=== PATIENT | male | born 1935 | race Caucasian/White ===

== ENCOUNTER 2016-08-03 14:11 | Inpatient (IN) | payer OTHER, MEDICARE ==
[2016-08-03 14:13] VITALS: BP 142/70; PULSE 65; RESP 20; TEMP 98; O2SAT 94
[2016-08-03] MEDS ORDERED: LISI-515 PO (14:32)
[2016-08-03] MEDS ORDERED: LATA0.002 RIGHT EYE (14:32)
[2016-08-03] MEDS ORDERED: PROT40TA PO (14:32)
[2016-08-03] MEDS ORDERED: TIMO0.5S30 EACH EYE (14:32)
[2016-08-03] MEDS ORDERED: LOVA40TA PO (14:32)
[2016-08-03] MEDS ORDERED: XARE20TA PO (14:32)
[2016-08-03 14:59] VITALS: BP 143/74; PULSE 91; RESP 18; O2SAT 97
[2016-08-03] MEDS ORDERED: SODIUM CHLORIDE 0.9% FLUSH 10 ML FLUSH IV FLUSH PRN ×2 (15:00→21:15)
[2016-08-03] MEDS ORDERED: ONDANSETRON HCL 4 MG/2 ML VIAL IVP ONE (15:00)
[2016-08-03] MEDS ORDERED: DICYCLOMINE HCL 20 MG/2 ML VIAL IM ONE (15:00)
--- NOTE | 2016-08-03 15:00 | PD ---
HPI Chief Complaint: Abdominal Pain Time Seen by Provider: 14:48 Travel History International Travel<30 days: No Contact w/Intl Traveler<30days: No Traveled to known affect area: No History of Present Illness HPI 80-year-old male with history of bovine aortic heart valve replacement presents with his for evaluation of abdominal pain. Symptoms started 2 weeks ago. He describes it as a cramping sensation in the suprapubic region which has been constant for 2 weeks. Associated decreased appetite, nausea, constipation. He denies any fevers, chills, testicular or scrotal pain, flank pain, diarrhea, chest pain or shortness of breath. He has never had this type of pain before. He is currently on vacation from [place], returns next week. He has no other complaints. [facility] Past Medical History Cancer: Yes Hypertension: Yes Triglycerides - High: Yes Influenza Vaccination: Yes Past Surgical History Cardiac Surgery: Yes (Caratid procedure) Coronary Artery Bypass Graft: Yes (aortic valve replacement 2013) Prostatectomy: Yes Social History Alcohol Use: No Tobacco Use: No Substance Use: No Allergies-Medications (Allergen,Severity, Reaction): Coded Allergies: No Known Allergies (Unverified , 08/03/16) Reported Meds & Prescriptions Reported Meds & Active Scripts Active Reported Timolol Opth Drops 0.5 % Soln 1 Drop EACH EYE BID Lisinopril 20 Mg Tab 20 Mg PO DAILY Lovastatin 40 Mg Tab 40 Mg PO DAILY Xarelto (Rivaroxaban) 20 Mg Tab 20 Mg PO DAILY Latanoprost Opth Drops (Latanoprost) 0.005% Drops 1 Drop RIGHT EYE HS Refrigerate until opened. Protonix (Pantoprazole Sodium) 40 Mg Tab 40 Mg PO DAILY Review of Systems Except as stated in HPI: all other systems reviewed are Neg Physical Exam Narrative GENERAL: Well-developed well-nourished male in no acute distress SKIN: Warm and dry. HEAD: Atraumatic. Normocephalic. EYES: Pupils equal and round. No scleral icterus. No injection or drainage. ENT: No nasal bleeding or discharge. Mucous membranes pink and moist. NECK: Trachea midline. No JVD. CARDIOVASCULAR: Regular rate and rhythm. Systolic murmur appreciated. RESPIRATORY: No accessory muscle use. Clear to auscultation. Breath sounds equal bilaterally. GASTROINTESTINAL: Abdomen soft, tender to palpation in the lower quadrants without guarding. Nondistended. Normoactive bowel sounds in all 4 quadrants. MUSCULOSKELETAL: No obvious deformities. No edema NEUROLOGICAL: Awake and alert. No obvious cranial nerve deficits. Motor grossly within normal limits. Normal speech. PSYCHIATRIC: Appropriate mood and affect; insight and judgment normal. Data Data Last Documented VS Vital Signs Date Time Temp Pulse Resp B/P Pulse Ox O2 Delivery O2 Flow Rate FiO2 08/03/16 20:21 77 16 136/70 96 08/03/16 14:59 2 08/03/16 14:13 98.0 Room Air Orders Complete Blood Count With Diff (08/03/16 14:56) Comprehensive Metabolic Panel (08/03/16 14:56) Lipase (08/03/16 14:56) Prothrombin Time / Inr (Pt) (08/03/16 14:56) Act Partial Throm Time (Ptt) (08/03/16 14:56) Urinalysis - C+S If Indicated (08/03/16 14:56) Iv Access Insert/Monitor (08/03/16 14:56) Ecg Monitoring (08/03/16 14:56) Oximetry (08/03/16 14:56) Ondansetron Inj (Zofran Inj) (08/03/16 15:00) Sodium Chloride 0.9% Flush (Ns Flush) (08/03/16 15:00) Dicyclomine Inj (Bentyl Inj) (08/03/16 15:00) Sodium Chlor 0.9% 1000 Ml Inj (Ns 1000 M (08/03/16 19:15) Ct Abd/Pel W/O Iv Contrast (08/03/16 ) Ciprofloxacin 400 Mg Premix (Cipro 400 M (08/03/16 21:00) Metronidazole 500 Mg Inj (Flagyl 500 Mg (08/03/16 21:00) Lactic Acid Sepsis Protocol (08/03/16 20:47) Blood Culture (08/03/16 20:47) Consult Kary Nfs (08/03/16 ) Ct Abd/Pel W Iv Contrast(Rout) (08/04/16 08:00) Consult General Surgery (08/03/16 ) Admit Order (Ed Use Only) (08/03/16 21:12) Admit To Inpatient (08/03/16 ) Vital Signs (Adult) Q4H (08/03/16 21:08) Activity Oob With Assistance (08/03/16 21:08) Morgue Technician / Telemetry .CONTINUOUS (08/03/16 21:08) Diet Npo (08/04/16 Breakfast) Sodium Chloride 0.9% Flush (Ns Flush) (08/03/16 21:15) Sodium Chloride 0.9% Flush (Ns Flush) (08/04/16 09:00) Ondansetron Inj (Zofran Inj) (08/03/16 21:15) Basic Metabolic Panel (Bmp) (08/04/16 06:00) Complete Blood Count With Diff (08/04/16 06:00) Case Management Consult (08/03/16 21:08) Naloxone Inj (Narcan Inj) (08/03/16 21:15) Inpatient Certification (08/03/16 ) Labs Laboratory Tests Test 08/03/16 15:00 White Blood Count 15.6 TH/MM3 Red Blood Count 4.61 MIL/MM3 Hemoglobin 13.9 GM/DL Hematocrit 40.9 % Mean Corpuscular Volume 88.8 FL Mean Corpuscular Hemoglobin 30.1 PG Mean Corpuscular Hemoglobin 33.9 % Concent Red Cell Distribution Width 13.3 % Platelet Count 370 TH/MM3 Mean Platelet Volume 7.2 FL Neutrophils (%) (Auto) 77.8 % Lymphocytes (%) (Auto) 8.9 % Monocytes (%) (Auto) 12.6 % Eosinophils (%) (Auto) 0.2 % Basophils (%) (Auto) 0.5 % Neutrophils # (Auto) 12.1 TH/MM3 Lymphocytes # (Auto) 1.4 TH/MM3 Monocytes # (Auto) 2.0 TH/MM3 Eosinophils # (Auto) 0.0 TH/MM3 Basophils # (Auto) 0.1 TH/MM3 CBC Comment DIFF FINAL Differential Comment Prothrombin Time 14.0 SEC Prothromb Time International 1.3 RATIO Ratio Activated Partial 33.6 SEC Thromboplast Time Urine Color YELLOW Urine Turbidity HAZY Urine pH 5.5 Urine Specific [place] 1.036 Urine Protein 30 mg/dL Urine Glucose (UA) NEG mg/dL Urine Ketones 10 mg/dL Urine Occult Blood NEG Urine Nitrite NEG Urine Bilirubin NEG Urine Urobilinogen 2.0 MG/DL Urine Leukocyte Esterase NEG Urine RBC 1 /hpf Urine WBC 2 /hpf Urine Squamous Epithelial <1 /hpf Cells Urine Mucus MANY /lpf Microscopic Urinalysis Comment CULT NOT INDICATED Sodium Level 133 MEQ/L Potassium Level 4.3 MEQ/L Chloride Level 96 MEQ/L Carbon Dioxide Level 26.5 MEQ/L Anion Gap 11 MEQ/L Blood Urea Nitrogen 17 MG/DL Creatinine 1.05 MG/DL Estimat Glomerular Filtration 68 ML/MIN Rate Random Glucose 111 MG/DL Calcium Level 9.0 MG/DL Total Bilirubin 0.9 MG/DL Aspartate Amino Transf 46 U/L (AST/SGOT) Alanine Aminotransferase 48 U/L (ALT/SGPT) Alkaline Phosphatase 98 U/L Total Protein 7.3 GM/DL Albumin 2.8 GM/DL Lipase 165 U/L MDM Medical Decision Making Medical Screen Exam Complete: Yes Emergency Medical Condition: Yes Medical Record Reviewed: Yes Interpretation(s) CT abdomen and pelvis CONCLUSION: Intravenous contrast dose extravasated in the arm soft tissues during injection. This is essentially a noncontrast study and slightly limited but features are most typical of severe diverticulitis with associated large, multiloculated abscess formation in the pelvic cavity. There are inflammatory changes of adjacent small bowel loops, presumably secondary. I would recommend giving additional enteric contrast, one bottle now and one bottle at approximately 6 AM on 08/04 and then rescanning the pelvis tomorrow morning at approximately 8 AM. Differential Diagnosis Constipation, colitis, diverticulitis, appendicitis, cystitis Narrative Course 80-year-old male with 2 weeks of abdominal cramping, nausea, constipation. Plans for basic lab work, urinalysis, CT abdomen and pelvis. He'll be given Bentyl, Zofran. Upon reexamination the patient does feel better. There was some delay in the CT being read because of traumas and also because his IV contrast extravasated. Examination of the right arm just reveals a small less than 1 cm area of ecchymosis, minimal pain. His white count is 15 but otherwise his lab work is reassuring. 2049: CT imaging has been read. Most consistent with severe diverticulitis with multiloculated abscess formation. Therefore the patient will be admitted, IV Cipro and Flagyl been ordered. The general surgeon convenience recycle center tech will also be consulted. Interventional radiology will be consult. The radiologist has recommended that a CT of the abdomen and pelvis with oral contrast given now, additional oral contrast at 6 AM, repeat CAT scan at 8 AM in the morning with IV contrast. This order has been placed into the computer and the nurses been notified of these instructions. Diagnosis Primary Impression: Diverticulitis Qualified Code: K57.80 - Diverticulitis of intestine with abscess, unspecified bleeding status, unspecified part of intestinal tract Admitting Information Admitting Physician Requests: Roderick Hernandez August 03, 2016 15:00
[2016-08-03 15:15] LABS: AUTOMATED NEUTROPHIL # 12.1 TH/MM3 (1.8-7.7); BASOPHIL # 0.1 TH/MM3 (0-0.2); BASOPHIL % 0.5 % (0.0-2.0); EOSINOPHIL % 0.2 % (0.0-4.0); HEMATOCRIT 40.9 % (39.0-51.0); HEMO FLAGS DIFF FINAL; LYMPH % 8.9 % (9.0-44.0); LYMPHOCYTE # 1.4 TH/MM3 (1.0-4.8); MEAN CELL VOLUME 88.8 FL (80.0-100.0); MEAN CORPUSCULAR HEMOGLOBIN 30.1 PG (27.0-34.0); MEAN CORPUSCULAR HGB CONC 33.9 % (32.0-36.0); MONO % 12.6 % (0.0-8.0); NEUT % 77.8 % (16.0-70.0); PLATELET COUNT 370 TH/MM3 (150-450); RED BLOOD COUNT 4.61 MIL/MM3 (4.50-5.90); RED CELL DISTRIBUTION WIDTH 13.3 % (11.6-17.2); WHITE BLOOD COUNT 15.6 TH/MM3 (4.0-11.0)
[2016-08-03 15:27] LABS: APTT (PATIENT) 33.6 SEC (24.3-30.1); INTERNATIONAL NORMALIZED RATIO 1.3 RATIO
[2016-08-03 15:33] LABS: ALT (GPT) 48 U/L (12-78); ANION GAP 11 MEQ/L (5-15); AST (GOT) 46 U/L (15-37); BICARBONATE 26.5 MEQ/L (21.0-32.0); BLOOD UREA NITROGEN 17 MG/DL (7-18); CHLORIDE 96 MEQ/L (98-107); GLOMERULAR FILTRATION RATE 68 ML/MIN (>89); POTASSIUM 4.3 MEQ/L (3.5-5.1); SODIUM (NA) 133 MEQ/L (136-145)
[2016-08-03 15:35] LABS: ALKALINE PHOSPHATASE 98 U/L (45-117); TOTAL BILIRUBIN ADULT 0.9 MG/DL (0.2-1.0)
[2016-08-03 15:52] LABS: BLOOD, URINE NEG (NEG); COMMENT (UR) CULT NOT INDICATED; CULTURE IF INDICATED CULT NOT INDICATED; GLUCOSE,URINE NEG (NEG); KETONE, URINE 10 mg/dL (NEG); MUCUS URINE MANY /lpf (OCC); NITRITE,URINE NEG (NEG); PH, URINE 5.5 (5.0-8.5); SQUAMOUS EPITHELIAL CELL URINE <1 /hpf (0-5); URINE COLOR YELLOW (YELLW/STRAW)
[2016-08-03] MEDS ORDERED: SODIUM CHLOR 0.9% 1000 ML INJ 1,000 ML IV SCH (19:15)
[2016-08-03 20:21] VITALS: BP 136/70; PULSE 77; RESP 16; O2SAT 96
--- NOTE | 2016-08-03 20:45 | RADRPT ---
EXAM DATE/TIME: 08/03/2016 00:00 [facility] COMPARISON: No previous studies available for comparison. INDICATIONS : Abdominal pain. ORAL CONTRAST: No oral contrast ingested. RADIATION DOSE: 9.08 CTDIvol (mGy) MEDICAL HISTORY : Cardiovascular disease. Hypertension. SURGICAL HISTORY : Prostatectomy. ENCOUNTER: Initial ACUITY: 1 day PAIN SCALE: 5/10 LOCATION: abdomen TECHNIQUE: Volumetric scanning of the abdomen and pelvis was performed. Using automated exposure control and ad justment of the mA and/or kV according to patient size, radiation dose was kept as low as reasonably achievable to obtain optimal diagnostic quality images. FINDINGS: LOWER LUNGS: The visualized lower lungs are clear. LIVER: Homogeneous density without lesion. There is no dilation of the biliary tree. No calcified gallston es. SPLEEN: Normal size without lesion. PANCREAS: Within normal limits. KIDNEYS: Normal in size and shape. There is no mass, stone, or hydronephrosis. ADRENAL GLANDS: Within normal limits. VASCULAR: There is atherosclerosis of the abdominal aorta. No aneurysm. BOWEL/MESENTERY: High-grade inflammatory changes involve the sigmoid colon. Diverticula are present. Medial to the sig moid colon is a masslike phlegmon measuring 5.7 x 6.8 x 6.0 cm. I believe this is a multiloculated ab scess. There is some wall thickening of adjacent small bowel loops but was mildly secondarily. I don' t see obstruction. No free air. ABDOMINAL WALL: Within normal limits. RETROPERITONEUM: There is no lymphadenopathy. BLADDER: No wall thickening or mass. REPRODUCTIVE: Within normal limits. INGUINAL: There is no lymphadenopathy or hernia. MUSCULOSKELETAL: Within normal limits for patient age. CONCLUSION: Intravenous contrast dose extravasated in the arm soft tissues during injection. This is essentially a noncontrast study and slightly limited but features are most typical of severe diverticulitis with associated large, multiloculated abscess formation in the pelvic cavity. There are inflammatory williamson es of adjacent small bowel loops, presumably secondary. I would recommend giving additional enteric c ontrast, one bottle now and one bottle at approximately 6 AM on 08/04 and then rescanning the pelvis t omorrow morning at approximately 8 AM. Brock Khan MD on August 03, 2016 at 20:39 Board Certified Radiologist. This report was verified electronically.
[2016-08-03] MEDS ORDERED: metroNIDAZOLE 500 MG INJ 100 ML IV ONE (21:00)
[2016-08-03] MEDS ORDERED: CIPROFLOXACIN 400 MG PREMIX 200 ML IV ONE (21:00)
[2016-08-03] MEDS ORDERED: ONDANSETRON HCL 4 MG/2 ML VIAL IVP PRN (21:15)
[2016-08-03] MEDS ORDERED: NALOXONE HCL 0.4 MG/ML AMP IV PRN (21:15)
[2016-08-03] MEDS: DEXT 5%-NACL 0.9% 1000 ML INJ 1,000 ML IV SCH (21:30)
[2016-08-03] MEDS ORDERED: DIATRIZOATE MEGLUM/DIATRIZOATE SOD 9 ML CUP ONE (22:05)
[2016-08-03 22:14] VITALS: BP 129/69; TEMP 99
--- NOTE | 2016-08-03 22:34 | HHI.HP ---
[facility]Staff Admission Diagnosis diverticulitis with abscess formation Diagnoses: Chief Complaint: Abdominal pain Travel History International Travel<30 Days: No Contact w/Intl Traveler <30 Da: No Traveled to Known Affected Are: No History of Present Illness Written by Aniyah Stein, acting as scribe for Dr. Singleton on 08/03/16 at 23: 14. 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 Patient is currently here on vacation from [place]. Patient reports for the last couple of weeks he has been having cramping type abdominal pain bilateral lower abdominal quadrants /suprapubic pain. Patient reports initially the pain was mild but is getting progressively worse. Patient had associated constipation. Patient has had taken an enema at home with no results. Reports last BM 10 days ago. Patient continues to pass flatus. Patient endorses black stool and had been taking Pepto Bismol OTC. Patient denies nausea, vomiting, chest pain, shortness of breath, fevers or chills. Patient has had recent plain traveled from [place] denies lower extremity edema or calf pain. 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 Protonix (Pantoprazole Sodium) 40 Mg Tab 40 Mg PO DAILY Allergies: Coded Allergies: No Known Allergies (Unverified , 08/03/16) Active Ordered Medications Current Medications Medications (Trade) Dose Ordered Sig/Sherman Route Start Time Stop Time Status Last Admin (NS Flush) 2 ml UNSCH PRN IV FLUSH 08/03/16 21:15 (NS Flush) 2 ml BID IV FLUSH 08/04/16 09:00 (Zofran Inj) 4 mg Q6H PRN IVP 08/03/16 21:15 Naloxone HCl 0.4 mg 0.4 mg UNSCH PRN IV 08/03/16 21:15 Ciprofloxacin/ Dextrose 200 ml @ 200 mls/hr Q12H IV 08/04/16 09:00 Metronidazole 100 ml @ 100 mls/hr Q6H IV 08/04/16 03:00 (D5W-NS 1000 ml Inj) 1,000 ml @ 84 mls/hr [id number] IV 08/03/16 21:30 08/03/16 21:30 Family History Brother at 55 secondary to HI Sister at 65 secondary to brain aneurysm also had HTN Social History Here on vacation from [place] ETOH use glass of wine daily quit smoking cigarettes 50 years ago Physical Exam Vital Signs Vital Signs Date Time Temp Pulse Resp B/P Pulse Ox O2 Delivery O2 Flow Rate FiO2 08/03/16 22:14 99.0 79 16 129/69 96 08/03/16 20:21 77 16 136/70 96 08/03/16 14:59 91 18 143/74 97 2 08/03/16 14:13 98.0 65 20 142/70 94 Room Air Physical Exam GENERAL: This is a well-nourished, well-developed patient, in no apparent distress. SKIN: No rashes, ecchymoses or lesions. Cool and dry. Right upper extremity edema secondary to Intravenous contrast dose extravasated HEAD: Atraumatic. Normocephalic. No temporal or scalp tenderness. EYES: No scleral icterus. No injection or drainage. CARDIOVASCULAR: Regular rate and rhythm without murmurs, gallops, or rubs. RESPIRATORY: Clear to auscultation. Breath sounds equal bilaterally. No wheezes , rales, or rhonchi. GASTROINTESTINAL: Abdomen soft, tender to light palpation bilateral lower abdominal quadrants and suprapubic area, nondistended. Positive bowel sounds all 4 quadrants MUSCULOSKELETAL: Extremities without clubbing, cyanosis, or edema. No joint tenderness, effusion, or edema noted. No calf tenderness. Negative Homans sign bilaterally. NEUROLOGICAL: Awake and alert. No focal deficits appreciated. Motor and sensory grossly within normal limits. Five out of 5 muscle strength in all muscle groups. Normal speech. Laboratory Laboratory Tests Test 08/03/16 08/03/16 15:00 21:15 White Blood Count 15.6 Red Blood Count 4.61 Hemoglobin 13.9 Hematocrit 40.9 Mean Corpuscular Volume 88.8 Mean Corpuscular Hemoglobin 30.1 Mean Corpuscular Hemoglobin 33.9 Concent Red Cell Distribution Width 13.3 Platelet Count 370 Mean Platelet Volume 7.2 Neutrophils (%) (Auto) 77.8 Lymphocytes (%) (Auto) 8.9 Monocytes (%) (Auto) 12.6 Eosinophils (%) (Auto) 0.2 Basophils (%) (Auto) 0.5 Neutrophils # (Auto) 12.1 Lymphocytes # (Auto) 1.4 Monocytes # (Auto) 2.0 Eosinophils # (Auto) 0.0 Basophils # (Auto) 0.1 CBC Comment DIFF FINAL Differential Comment Prothrombin Time 14.0 Prothromb Time International 1.3 Ratio Activated Partial 33.6 Thromboplast Time Urine Color YELLOW Urine Turbidity HAZY Urine pH 5.5 Urine Specific [place] 1.036 Urine Protein 30 Urine Glucose (UA) NEG Urine Ketones 10 Urine Occult Blood NEG Urine Nitrite NEG Urine Bilirubin NEG Urine Urobilinogen 2.0 Urine Leukocyte Esterase NEG Urine RBC 1 Urine WBC 2 Urine Squamous Epithelial <1 Cells Urine Mucus MANY Microscopic Urinalysis Comment CULT NOT INDICATED Sodium Level 133 Potassium Level 4.3 Chloride Level 96 Carbon Dioxide Level 26.5 Anion Gap 11 Blood Urea Nitrogen 17 Creatinine 1.05 Estimat Glomerular Filtration 68 Rate Random Glucose 111 Calcium Level 9.0 Total Bilirubin 0.9 Aspartate Amino Transf 46 (AST/SGOT) Alanine Aminotransferase 48 (ALT/SGPT) Alkaline Phosphatase 98 Total Protein 7.3 Albumin 2.8 Lipase 165 Lactic Acid Level 0.9 Date/Time Procedure Status Source Growth 08/03/16 21:30 Aerobic Blood Culture Received Blood Peripheral Pending 08/03/16 21:30 Anaerobic Blood Culture Received Blood Peripheral Pending Result Diagram: 08/03/16 1500 08/03/16 1500 Imaging Last Impressions Abdomen/Pelvis CT 08/03/16 0000 Signed Impressions: Service Date/Time: July 00:00 - CONCLUSION: Intravenous contrast dose extravasated in the arm soft tissues during injection. This is essentially a noncontrast study and slightly limited but features are most typical of severe diverticulitis with associated large, multiloculated abscess formation in the pelvic cavity. There are inflammatory changes of adjacent small bowel loops, presumably secondary. I would recommend giving additional enteric contrast, one bottle now and one bottle at approximately 6 AM on 08/04 and then rescanning the pelvis tomorrow morning at approximately 8 AM. 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 Patient is currently here on vacation from [place]. Patient reports for the last couple of weeks he has been having cramping type abdominal pain bilateral lower abdominal quadrants /suprapubic pain. Patient reports initially the pain was mild but is getting progressively worse. Abdominal pain Severe diverticulitis with multiloculated abscess Patient nothing by mouth CT scan reviewed and reveals: severe diverticulitis: severe diverticulitis with associated large, multiloculated abscess formation in the pelvic cavity. There are inflammatory changes of adjacent small bowel loops, presumably secondary. Intravenous contrast dose extravasated into soft tissue of arm during scan will repeat scan in AM IV hydration IV ciprofloxacin and Flagyl Consult general surgery Right upper extremity edema secondary to Intravenous contrast dose extravasated family history of brain aneurysm discussed risks with patient and recommended patient follow up with PCP for evaluation other chronic stable medical conditions include: HTN, CAD, aortic stenosis, TIA/ CVA continue home medications as indicated Discussed with ER provider, nursing and patient This note was transcribed by [email or web address] [Stefanie Stein]. I, Dr. Garth Singleton personally performed the history, physical exam, and medical decision making; and confirmed the accuracy of the information in the transcribed note. Authenticated by Dr. Garth Singleton on 08/03/16 at 23:14. Physician Certification 2 Midnight Certification Type: Admission for Inpatient Services Order for Inpatient Services The services are ordered in accordance with Medicare regulations or non- Medicare payer requirements, as applicable. In the case of services not specified as inpatient-only, they are appropriately provided as inpatient services in accordance with the 2-midnight benchmark. Estimated LOS (days): 3 days is the estimated time the patient will need to remain in the hospital, assuming treatment plan goals are met and no additional complications. Post-Hospital Plan: Home Problem Qualifiers (1) Diverticulitis: Qualified Code: K57.80 - Diverticulitis of intestine with abscess, unspecified bleeding status, unspecified part of intestinal tract Aniyah Stein August 03, 2016 22:34 Garth Singleton MD August 04, 2016 08:11
[2016-08-03 23:00] VITALS: PULSE 60
[2016-08-04] VITALS (7 sets, daily range): BP systolic 99–129; BP diastolic 52–62; PULSE 50–66; RESP 16–20; TEMP 97.1–98; O2SAT 93–97
[2016-08-04] MEDS ORDERED: DIATRIZOATE MEGLUM/DIATRIZOATE SOD 9 ML CUP PO ONE (00:57)
[2016-08-04] MEDS: metroNIDAZOLE 500 MG INJ 100 ML IV SCH ×4 (03:31→21:18)
[2016-08-04] MEDS ORDERED: IOHEXOL 350 MG/ML 10 ML VIAL (for RAD DIAG) IV ONE (09:20)
[2016-08-04] MEDS: SODIUM CHLORIDE 0.9% FLUSH 10 ML FLUSH IV FLUSH SCH ×2 (09:47→21:00)
[2016-08-04 09:56] LABS: AUTOMATED NEUTROPHIL # 7.6 TH/MM3 (1.8-7.7); BASOPHIL # 0.1 TH/MM3 (0-0.2); BASOPHIL % 0.5 % (0.0-2.0); EOSINOPHIL # 0.1 TH/MM3 (0-0.4); EOSINOPHIL % 0.9 % (0.0-4.0); HEMATOCRIT 36.7 % (39.0-51.0); HEMO FLAGS DIFF FINAL; LYMPH % 13.2 % (9.0-44.0); LYMPHOCYTE # 1.4 TH/MM3 (1.0-4.8); MEAN CELL VOLUME 89.1 FL (80.0-100.0); MEAN CORPUSCULAR HEMOGLOBIN 29.8 PG (27.0-34.0); MEAN CORPUSCULAR HGB CONC 33.4 % (32.0-36.0); MONO % 12.9 % (0.0-8.0); NEUT % 72.5 % (16.0-70.0); PLATELET COUNT 280 TH/MM3 (150-450); RED BLOOD COUNT 4.12 MIL/MM3 (4.50-5.90); RED CELL DISTRIBUTION WIDTH 12.9 % (11.6-17.2); WHITE BLOOD COUNT 10.4 TH/MM3 (4.0-11.0)
[2016-08-04 10:10] LABS: BICARBONATE 25.6 MEQ/L (21.0-32.0); POTASSIUM 3.9 MEQ/L (3.5-5.1)
--- NOTE | 2016-08-04 10:29 | RADRPT ---
EXAM DATE/TIME: 08/04/2016 09:04 [facility] COMPARISON: No previous studies available for comparison. INDICATIONS : Abdominal pain. IV CONTRAST: 85 cc Omnipaque 350 (iohexol) IV ORAL CONTRAST: Prescribed oral contrast ingested. RADIATION DOSE: 9.96 CTDIvol (mGy) MEDICAL HISTORY : Cardiovascular disease. Hypertension. Diverticulitis. SURGICAL HISTORY : Prostatectomy. ENCOUNTER: Subsequent ACUITY: 1 day PAIN SCALE: 1/10 LOCATION: TECHNIQUE: Volumetric scanning of the abdomen and pelvis was performed. Using automated exposure control and ad justment of the mA and/or kV according to patient size, radiation dose was kept as low as reasonably achievable to obtain optimal diagnostic quality images. FINDINGS: Within the sigmoid colon there is an approximately 6 cm segment of marked mural thickening associated with sigmoid diverticulosis characteristic sigmoid diverticulitis.. The inflammatory process appears to engulf a loop of distal small bowel with mural thickening of the adjacent ileum. There is some sc attered nonloculated fluid around the sigmoid colon and thickened small bowel but without loculated a bscess formation at this time. There is some luminal narrowing of distal small bowel and sigmoid colo n without evidence for obstruction. There is no free air. There is a small amount of free fluid in th e pelvis. Lung bases demonstrate subsegmental atelectasis or scarring. Moderate hiatal hernia. No acute finding s in the liver, spleen, adrenals, kidneys or pancreas. No calcified gallstones. No acute bony abnorma lities. CONCLUSION: 1. Acute sigmoid diverticulitis with fairly large phlegmonous mass in the mid pelvis involving an adj acent loop of small bowel associated with small bowel thickening. There is some nonloculated fluid in the central pelvis as well as a small amount of free fluid. No discrete or drainable abscess is seen . No free air. 2. Moderate-sized hiatal hernia. Previous aortic valve replacement. Jose Angel Wan MD on August 04, 2016 at 10:18 Board Certified Radiologist. This report was verified electronically.
[2016-08-04] MEDS: CIPROFLOXACIN 400 MG PREMIX 200 ML IV SCH ×2 (11:50→22:27)
--- NOTE | 2016-08-04 12:59 | HHI.PR ---
Subjective Remarks Denies abdominal pain denies nausea and vomiting denies fevers and chills Objective Vitals Vital Signs Date Time Temp Pulse Resp B/P Pulse Ox O2 Delivery O2 Flow Rate FiO2 08/04/16 08:00 97.1 56 20 111/62 96 08/04/16 04:00 97.7 54 16 99/53 95 08/04/16 00:00 97.6 66 16 99/52 94 08/03/16 23:00 60 08/03/16 22:14 99.0 79 16 129/69 96 08/03/16 20:21 77 16 136/70 96 08/03/16 14:59 91 18 143/74 97 2 08/03/16 14:13 98.0 65 20 142/70 94 Room Air I/O 08/03/16 08/03/16 08/03/16 08/04/16 08/04/16 08/04/16 07:00 15:00 23:00 07:00 15:00 23:00 Intake Total 600 ml 530 ml Balance 600 ml 530 ml Intake Oral 600 ml IV Total 530 ml # Voids 2 Result Diagram: 08/04/1636 08/04/16 0936 Imaging Last Impressions Abdomen/Pelvis CT 08/04/16 0800 Signed Impressions: Service Date/Time: Thursday, August 04, 2016 09:04 - CONCLUSION: 1. Acute sigmoid diverticulitis with fairly large phlegmonous mass in the mid pelvis involving an adjacent loop of small bowel associated with small bowel thickening. There is some nonloculated fluid in the central pelvis as well as a small amount of free fluid. No discrete or drainable abscess is seen. No free air. 2. Moderate- sized hiatal hernia. Previous aortic valve replacement. Jose Angel Wan MD Objective Remarks GENERAL: NAD SKIN: Warm and dry. HEAD: Atraumatic. Normocephalic. EYES: Pupils equal and round. No scleral icterus. No injection or drainage. ENT: No nasal bleeding or discharge. Mucous membranes pink and moist. NECK: Trachea midline. No JVD. CARDIOVASCULAR: Regular rate and rhythm. RESPIRATORY: No accessory muscle use. Clear to auscultation. Breath sounds equal bilaterally. GASTROINTESTINAL: Abdomen soft, non-tender, nondistended. Hepatic and splenic margins not palpable. MUSCULOSKELETAL: Extremities without clubbing, cyanosis, or edema. No obvious deformities. NEUROLOGICAL: Awake and alert. No obvious cranial nerve deficits. Motor grossly within normal limits. Five out of 5 muscle strength in the arms and legs. Normal speech. PSYCHIATRIC: Appropriate mood and affect; insight and judgment normal. Procedures none Medications and IVs Current Medications Medications (Trade) Dose Ordered Sig/Sherman Route Start Time Stop Time Status Last Admin (NS Flush) 2 ml UNSCH PRN IV FLUSH 08/03/16 21:15 (NS Flush) 2 ml BID IV FLUSH 08/04/16 09:00 08/04/16 09:47 (Zofran Inj) 4 mg Q6H PRN IVP 08/03/16 21:15 Naloxone HCl 0.4 mg 0.4 mg UNSCH PRN IV 08/03/16 21:15 Ciprofloxacin/ Dextrose 200 ml @ 200 mls/hr Q12H IV 08/04/16 09:00 08/04/16 11:50 Metronidazole 100 ml @ 100 mls/hr Q6H IV 08/04/16 03:00 08/04/16 15:14 (D5W-NS 1000 ml Inj) 1,000 ml @ 84 mls/hr [id number] IV 08/03/16 21:30 08/03/16 21:30 Urinary Catheter: No Vascular Central Line Catheter: No A/P Problem List: (1) Sepsis ICD Code: A41.9 Status: Acute (2) Acute diverticulitis ICD Code: K57.92 Status: Acute Assessment and Plan Patient presented initially with abdominal pain and found to have diverticulitis with what was thought to be multiloculated abscess. Patient admitted to the medical floor, placed on IV fluids, nothing by mouth, placed on pain control with IV pain medications Surgery consulted for possible diverticulitis with multiloculated abscess, however CT scan was without contrast due to failed CT scan with IV contrast due to extravasation of IV contrast on first CT. Repeat CT does not show abscess. Follow-up surgery recommendations. Given P nothing by mouth for now Continue IV fluids, continue IV ciprofloxacin and IV Flagyl Abdominal pain has resolved. Problem Qualifiers (1) Sepsis: Qualified Code: A41.9 - Sepsis, due to unspecified organism Diomedes Alcantar MD August 04, 2016 12:59
--- NOTE | 2016-08-04 14:35 | HHI.PR ---
Subjective Subjective Notes Resting in bed Feeling better Inquiring about when he will be able to go home Objective Vitals/I&O Vital Signs Date Time Temp Pulse Resp B/P Pulse Ox O2 Delivery O2 Flow Rate FiO2 08/04/16 08:00 97.1 56 20 111/62 96 08/03/16 14:59 2 08/03/16 14:13 Room Air Labs Laboratory Tests Test 08/03/16 08/03/16 08/04/16 15:00 21:15 09:36 White Blood Count 15.6 10.4 Red Blood Count 4.61 4.12 Hemoglobin 13.9 12.3 Hematocrit 40.9 36.7 Mean Corpuscular Volume 88.8 89.1 Mean Corpuscular Hemoglobin 30.1 29.8 Mean Corpuscular Hemoglobin 33.9 33.4 Concent Red Cell Distribution Width 13.3 12.9 Platelet Count 370 280 Mean Platelet Volume 7.2 6.9 Neutrophils (%) (Auto) 77.8 72.5 Lymphocytes (%) (Auto) 8.9 13.2 Monocytes (%) (Auto) 12.6 12.9 Eosinophils (%) (Auto) 0.2 0.9 Basophils (%) (Auto) 0.5 0.5 Neutrophils # (Auto) 12.1 7.6 Lymphocytes # (Auto) 1.4 1.4 Monocytes # (Auto) 2.0 1.3 Eosinophils # (Auto) 0.0 0.1 Basophils # (Auto) 0.1 0.1 CBC Comment DIFF FINAL DIFF FINAL Differential Comment Prothrombin Time 14.0 Prothromb Time International 1.3 Ratio Activated Partial 33.6 Thromboplast Time Urine Color YELLOW Urine Turbidity HAZY Urine pH 5.5 Urine Specific [place] 1.036 Urine Protein 30 Urine Glucose (UA) NEG Urine Ketones 10 Urine Occult Blood NEG Urine Nitrite NEG Urine Bilirubin NEG Urine Urobilinogen 2.0 Urine Leukocyte Esterase NEG Urine RBC 1 Urine WBC 2 Urine Squamous Epithelial <1 Cells Urine Mucus MANY Microscopic Urinalysis Comment CULT NOT INDICATED Sodium Level 133 137 Potassium Level 4.3 3.9 Chloride Level 96 101 Carbon Dioxide Level 26.5 25.6 Anion Gap 11 10 Blood Urea Nitrogen 17 13 Creatinine 1.05 0.78 Estimat Glomerular Filtration 68 96 Rate Random Glucose 111 101 Calcium Level 9.0 8.1 Total Bilirubin 0.9 Aspartate Amino Transf 46 (AST/SGOT) Alanine Aminotransferase 48 (ALT/SGPT) Alkaline Phosphatase 98 Total Protein 7.3 Albumin 2.8 Lipase 165 Lactic Acid Level 0.9 Date/Time Procedure Status Source Growth 08/03/16 21:30 Aerobic Blood Culture - Preliminary Resulted Blood Peripheral NO GROWTH IN 1 DAY 08/03/16 21:30 Anaerobic Blood Culture - Preliminary Resulted Blood Peripheral NO GROWTH IN 1 DAY Cardiovascular: Regular Lungs: Clear Abdomen: Non-distended, Other (minimal discomfot with palpation ) Extremities: No edema A/P Assessment and Plan 80 year old male with acute diverticulitis -Continue antibiotics ---Cipro/Flagyl -Repeat CT does not show drainage fluid collection -Continue to monitor WBC ---today 10.4 -OOB and mobilize -NPO; Okay for ice chips -Continue non operative treatment Attending Statement Patient seen at bedside no abscess on re CT continue non operative mgnt and abx Attestation The exam, history, and the medical decision-making described in the above note were completed with the assistance of the mid-level provider. I reviewed and agree with the findings presented. I attest that I had a [id number] encounter with the patient on the same day, and personally performed and documented my assessment and findings in the medical record. Shirley Shaw August 04, 2016 14:35 Thom Mata MD Aug 13, 2016 21:34
[2016-08-04] MEDS: DEXT 5%-NACL 0.9% 1000 ML INJ 1,000 ML IV SCH (21:20)
[2016-08-05] VITALS: BP 97/52; PULSE 55; RESP 18; TEMP 98.7; O2SAT 94
[2016-08-05] MEDS: metroNIDAZOLE 500 MG INJ 100 ML IV SCH ×3 (02:13→15:45)
[2016-08-05 04:00] VITALS: BP 97/55; PULSE 56; RESP 19; TEMP 99.8; O2SAT 94
[2016-08-05] MEDS: DEXT 5%-NACL 0.9% 1000 ML INJ 1,000 ML IV SCH (06:53)
[2016-08-05 08:00] VITALS: BP 106/56; PULSE 55; RESP 20; TEMP 98.1; O2SAT 91
[2016-08-05] MEDS: SODIUM CHLORIDE 0.9% FLUSH 10 ML FLUSH IV FLUSH SCH (09:00)
[2016-08-05] MEDS: CIPROFLOXACIN 400 MG PREMIX 200 ML IV SCH (10:26)
[2016-08-05 10:30] LABS: BASOPHIL # 0.1 TH/MM3 (0-0.2); BASOPHIL % 0.7 % (0.0-2.0); EOSINOPHIL # 0.2 TH/MM3 (0-0.4); EOSINOPHIL % 2.2 % (0.0-4.0); HEMO FLAGS DIFF FINAL; LYMPH % 14.7 % (9.0-44.0); LYMPHOCYTE # 1.1 TH/MM3 (1.0-4.8); MEAN CORPUSCULAR HEMOGLOBIN 31.3 PG (27.0-34.0); MEAN CORPUSCULAR HGB CONC 35.2 % (32.0-36.0); MONO % 13.7 % (0.0-8.0); NEUT % 68.7 % (16.0-70.0); PLATELET COUNT 303 TH/MM3 (150-450); RED BLOOD COUNT 3.93 MIL/MM3 (4.50-5.90); RED CELL DISTRIBUTION WIDTH 13.1 % (11.6-17.2); WHITE BLOOD COUNT 7.3 TH/MM3 (4.0-11.0)
--- NOTE | 2016-08-05 10:44 | HHI.PR ---
Subjective Subjective Notes feels fine, wants to eat and go home Objective Vitals/I&O Vital Signs Date Time Temp Pulse Resp B/P Pulse Ox O2 Delivery O2 Flow Rate FiO2 08/05/16 08:00 98.1 55 20 106/56 91 08/03/16 14:59 2 08/03/16 14:13 Room Air Labs Laboratory Tests Test 08/05/16 09:53 White Blood Count 7.3 Red Blood Count 3.93 Hemoglobin 12.3 Hematocrit 35.0 Mean Corpuscular Volume 89.0 Mean Corpuscular Hemoglobin 31.3 Mean Corpuscular Hemoglobin 35.2 Concent Red Cell Distribution Width 13.1 Platelet Count 303 Mean Platelet Volume 7.3 Neutrophils (%) (Auto) 68.7 Lymphocytes (%) (Auto) 14.7 Monocytes (%) (Auto) 13.7 Eosinophils (%) (Auto) 2.2 Basophils (%) (Auto) 0.7 Neutrophils # (Auto) 5.0 Lymphocytes # (Auto) 1.1 Monocytes # (Auto) 1.0 Eosinophils # (Auto) 0.2 Basophils # (Auto) 0.1 CBC Comment DIFF FINAL Differential Comment Date/Time Procedure Status Source Growth 08/03/16 21:30 Aerobic Blood Culture - Preliminary Resulted Blood Peripheral NO GROWTH IN 1 DAY 08/03/16 21:30 Anaerobic Blood Culture - Preliminary Resulted Blood Peripheral NO GROWTH IN 1 DAY Abdomen: Non-distended, Non-tender A/P Assessment and Plan diverticulitis resume diet change ABX to po ok to DC home today FU Dr. Mata in office [phone] FU with GI for colonoscopy in 1-2 months Scooter Juarez MD August 05, 2016 10:44
[2016-08-05 12:22] VITALS: BP 109/58; PULSE 51; RESP 20; TEMP 97.8; O2SAT 93
[2016-08-05] MEDS ORDERED: CIPR500T2 PO (12:24)
[2016-08-05] MEDS ORDERED: METR-1 PO (12:24)
--- NOTE | 2016-08-05 12:24 | HHI.DCPOC ---
Discharge Care Plan Diagnosis: (1) Diverticulitis (2) Sepsis (3) Acute diverticulitis Goals to Promote Your Health * To prevent worsening of your condition and complications * To maintain your health at the optimal level Directions to Meet Your Goals Take your medications as prescribed Follow your dietary instruction Follow activity as directed Keep your appointments as scheduled Take your immunizations and boosters as scheduled If your symptoms worsen call your PCP, if no PCP go to Urgent Care Center or Emergency Room Smoking is Dangerous to Your Health. Avoid second hand smoke Call the 24-hour hour crisis hotline for domestic abuse at Diomedes Alcantar MD August 05, 2016 12:24
--- NOTE | 2016-08-05 12:29 | HHI.DS ---
Discharge Summary Admission Date August 03, 2016 at 21:13 Discharge Date: August 05, 2016 Admitting Diagnosis diverticulitis with abscess formation (1) Sepsis ICD Code: A41.9 Diagnosis: Principal (2) Acute diverticulitis ICD Code: K57.92 Diagnosis: Principal Procedures none Brief History - From Admission Written by Aniyah Stein, acting as scribe for Dr. Singleton on 08/03/16 at 23: 14. 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 Patient is currently here on vacation from [place]. Patient reports for the last couple of weeks he has been having cramping type abdominal pain bilateral lower abdominal quadrants /suprapubic pain. Patient reports initially the pain was mild but is getting progressively worse. Patient had associated constipation. Patient has had taken an enema at home with no results. Reports last BM 10 days ago. Patient continues to pass flatus. Patient endorses black stool and had been taking Pepto Bismol OTC. Patient denies nausea, vomiting, chest pain, shortness of breath, fevers or chills. Patient has had recent plain traveled from [place] denies lower extremity edema or calf pain. CBC/BMP: 08/05/16 0953 08/04/16 0936 Significant Findings Laboratory Tests Test 08/03/16 08/04/16 08/05/16 15:00 09:36 09:53 White Blood Count 15.6 TH/MM3 (4.0-11.0) Neutrophils (%) (Auto) 77.8 % 72.5 % (16.0-70.0) (16.0-70.0) Lymphocytes (%) (Auto) 8.9 % (9.0-44.0) Monocytes (%) (Auto) 12.6 % 12.9 % 13.7 % (0.0-8.0) (0.0-8.0) (0.0-8.0) Neutrophils # (Auto) 12.1 TH/MM3 (1.8-7.7) Monocytes # (Auto) 2.0 TH/MM3 1.3 TH/MM3 1.0 TH/MM3 (0-0.9) (0-0.9) (0-0.9) Prothrombin Time 14.0 SEC (9.8-11.6) Activated Partial 33.6 SEC Thromboplast Time (24.3-30.1) Urine Turbidity HAZY (CLEAR) Urine Specific [place] 1.036 (1.002-1.035) Urine Protein 30 mg/dL (NEG-TRACE) Urine Ketones 10 mg/dL (NEG) Urine Mucus MANY /lpf (OCC) Sodium Level 133 MEQ/L (136-145) Chloride Level 96 MEQ/L (98-107) Estimat Glomerular Filtration 68 ML/MIN (>89) Rate Random Glucose 111 MG/DL (74-106) Aspartate Amino Transf 46 U/L (15-37) (AST/SGOT) Albumin 2.8 GM/DL (3.4-5.0) Red Blood Count 4.12 MIL/MM3 3.93 MIL/MM3 (4.50-5.90) (4.50-5.90) Hemoglobin 12.3 GM/DL 12.3 GM/DL (13.0-17.0) (13.0-17.0) Hematocrit 36.7 % 35.0 % (39.0-51.0) (39.0-51.0) Mean Platelet Volume 6.9 FL (7.0-11.0) Calcium Level 8.1 MG/DL (8.5-10.1) Imaging Last Impressions Abdomen/Pelvis CT 08/04/16 0800 Signed Impressions: Service Date/Time: Thursday, August 04, 2016 09:04 - CONCLUSION: 1. Acute sigmoid diverticulitis with fairly large phlegmonous mass in the mid pelvis involving an adjacent loop of small bowel associated with small bowel thickening. There is some nonloculated fluid in the central pelvis as well as a small amount of free fluid. No discrete or drainable abscess is seen. No free air. 2. Moderate- sized hiatal hernia. Previous aortic valve replacement. Jose Angel Wan MD PE at Discharge GENERAL: NAD SKIN: Warm and dry. HEAD: Atraumatic. Normocephalic. EYES: Pupils equal and round. No scleral icterus. No injection or drainage. ENT: No nasal bleeding or discharge. Mucous membranes pink and moist. NECK: Trachea midline. No JVD. CARDIOVASCULAR: Regular rate and rhythm. RESPIRATORY: No accessory muscle use. Clear to auscultation. Breath sounds equal bilaterally. GASTROINTESTINAL: Abdomen soft, non-tender, nondistended. Hepatic and splenic margins not palpable. MUSCULOSKELETAL: Extremities without clubbing, cyanosis, or edema. No obvious deformities. NEUROLOGICAL: Awake and alert. No obvious cranial nerve deficits. Motor grossly within normal limits. Five out of 5 muscle strength in the arms and legs. Normal speech. PSYCHIATRIC: Appropriate mood and affect; insight and judgment normal. Pt update on day of discharge Patient denies abdominal pain, nausea or vomiting, wants to eat. Patient has been cleared to be discharged by general surgery on oral antibiotics. Hospital Course Sepsis present on admission with leukocytosis and HR > 90. Patient presented initially with abdominal pain and found to have diverticulitis with what was thought to be multiloculated abscess. Patient admitted to the medical floor, placed on IV fluids, nothing by mouth, placed on pain control with IV pain medications Surgery consulted for possible diverticulitis with multiloculated abscess, however CT scan was without contrast due to failed CT scan with IV contrast due to extravasation of IV contrast on first CT. Repeat CT did not show abscess. Treated w IV fluids, IV Ciprofloxacine and IV Flagyl. Abdominal pain resolved with above mentioned treatment, the patient was started on a diet which he tolerated well and cleared to be discharged by General surgery. Pt Condition on Discharge: Stable Discharge Disposition: Discharge Home Discharge Time: > 30 minutes Discharge Instructions DIET: Follow Instructions for: As Tolerated, No Restrictions Activities you can perform: Regular-No Restrictions Follow up Referrals: PCP Follow-up - 1 Week New Medications: Ciprofloxacin (Ciprofloxacin) 500 Mg Tab 500 MG PO BID Infection #14 Ref 0 TAB Metronidazole (Flagyl) 500 Mg Tab 500 MG PO TID Infection #21 Ref 0 TAB Continued Medications: Latanoprost Opth Drops (Latanoprost Opth Drops) 0.005% Drops 1 DROP RIGHT EYE HS Refrigerate until opened. Glaucoma #2.5 Ref 0 ML Lovastatin (Lovastatin) 40 Mg Tab 40 MG PO DAILY Cholesterol Management #30 Ref 0 TAB Pantoprazole (Protonix) 40 Mg Tab 40 MG PO DAILY Reflux #30 Ref 0 TAB Rivaroxaban (Xarelto) 20 Mg Tab 20 MG PO DAILY Blood Clot Prevention Ref 0 TAB Timolol Opth Drops (Timolol Opth Drops) 0.5 % Soln 1 DROP EACH EYE BID Glaucoma #1 Ref 0 BOTTLE Discontinued Medications: Lisinopril (Lisinopril) 20 Mg Tab 20 MG PO DAILY #30 Ref 0 TAB Diomedes Alcantar MD August 05, 2016 12:29
--- NOTE | 2016-08-05 16:17 | EKG ---
Date Performed: 08/04/2016 Time Performed: 22:34:41 PTAGE: 80 years EKG: Sinus bradycardia with PACs Possible anterior wall myocardial infarction of undetermined ag e NO PREVIOUS TRACING DOCTOR: Rodolfo Johnson Interpretating Date/Time 08/05/2016 16:15:44
[2016-08-05 16:55] VITALS: BP 118/59; PULSE 56; RESP 20; TEMP 99; O2SAT 93
== END 2016-08-05 19:11 | disposition home or self-care (01) | DRG 872 ==
LOC: EDBD → NEPC 14:11 → NEDA 21:13 → HOCB 22:52
PROVIDERS: ADMIT Hospitalist; ATTEND Hospitalist
DX: A41.9 Sepsis, unspecified organism (principal); K57.92 Diverticulitis of intestine, part unspecified, without perforation or abscess without bleeding; I10 Essential (primary) hypertension; K59.00 Constipation, unspecified; I25.10 Atherosclerotic heart disease of native coronary artery without angina pectoris; Z95.5 Presence of coronary angioplasty implant and graft; Z95.3 Presence of xenogenic heart valve; Z86.73 Personal history of transient ischemic attack (TIA), and cerebral infarction without residual deficits; Z85.46 Personal history of malignant neoplasm of prostate; Z92.3 Personal history of irradiation; Z87.891 Personal history of nicotine dependence
CPT/HCPCS: 74176; 74177; 80048; 80053; 81001; 83605; 83690; 85025; 85610; 85730; 87040; 93005; 96372; 96374; 96375; J0500; J0744; J2405; J7030; J7042; Q9963; Q9967